=== PATIENT | male | born 1970 | race Caucasian/White ===

== ENCOUNTER 2019-02-07 21:35 | Emergency (ER) | payer MEDICAID ==
[2019-02-07] MEDS ORDERED: Ketorolac 60 MG/2 ML SDV IM ONE (21:58)
[2019-02-07 22:27] VITALS: BP 164/92
--- NOTE | 2019-02-08 02:16 | ER ---
DATE OF CONSULTATION: 02/07/2019 HISTORY OF PRESENT ILLNESS: This 48-year-old gentleman is seen in the emergency room this evening for evaluation of right groin pain. He has been having severe pain in the right groin region, described as a sharp stabbing pain. He is on the schedule to have his right inguinal hernia repaired in two days. He was having some diarrhea yesterday, but no nausea or vomiting. Because of the severity of the pain, he presents tonight for evaluation. PHYSICAL EXAMINATION: His upper abdomen is soft and nontender. His lower abdomen is normal to palpation and is soft, but he does have tenderness in the right inguinal region to palpation. In the upright position, I am able to palpate the hernia, but this easily reduces completely in the supine position. ASSESSMENT: Right inguinal hernia, reduced. PLAN: The patient does not have an incarcerated or strangulated hernia tonight. I will give him some Toradol IM for pain. We will have him rest at home tomorrow and not do any strenuous type activity. He will remain on the schedule to have his hernia repaired on Friday. /[id number] DIGNA/MARCO ANTONIO
== END 2019-02-07 22:10 | disposition home or self-care (01) ==
LOC: FB.ED 21:35
DX: K40.90 Unilateral inguinal hernia, without obstruction or gangrene, not specified as recurrent (principal)
CPT/HCPCS: 96372; 99282; J1885

== ENCOUNTER 2019-02-09 06:35 | Day surgery (SDC) | payer MEDICAID ==
[2019-02-09] MEDS ORDERED: Propofol 200 MG/20 ML SDV IV ONE (06:36)
[2019-02-09] MEDS ORDERED: Ketamine 500 mg/10 ML MDV IV ONE (06:36)
[2019-02-09] MEDS ORDERED: fentaNYL 100 MCG/2 ML SDV IV ONE ×2 (06:36)
[2019-02-09] MEDS ORDERED: Lactated Ringers 1,000 ML IV ONE (06:36)
[2019-02-09] MEDS ORDERED: Lidocaine 1% 30 ML SDV INJECT ONE (06:36)
[2019-02-09] MEDS ORDERED: Ketorolac 30 MG/ML SDV IVPUSH ONE (06:36)
[2019-02-09] MEDS ORDERED: Ondansetron 4 MG/2 ML SDV IVPUSH ONE (06:36)
[2019-02-09] MEDS ORDERED: Dexamethasone 4 MG/ML 5 ML MDV IVPUSH ONE (06:36)
[2019-02-09] MEDS ORDERED: Midazolam 1 MG/ML 2 ML SDV IV ONE (06:36)
[2019-02-09] MEDS ORDERED: Lactated Ringers 1,000 ML IV SCH (06:45)
[2019-02-09] MEDS ORDERED: Sodium Chloride 0.9% 10 ML Syringe FLUSH PRN (06:45)
[2019-02-09] MEDS ORDERED: Gabapentin 300 MG Cap PO ONE (07:00)
[2019-02-09] MEDS ORDERED: Acetaminophen 500 MG Tab PO ONE (07:00)
[2019-02-09] MEDS ORDERED: ceFAZolin 2 GM in Premix Bag 1 BAG IV ONE (08:00)
--- NOTE | 2019-02-09 08:09 | PCM.HPR ---
H & P Addendum review - H & P Addendum Review Date of Original H & P: 02/03/19 Date Reviewed: 02/09/19 Time Reviewed: 07:55 Patient was Examined: No Changes
[2019-02-09] MEDS ORDERED: Lidocaine 1% with EPINEPHrine 1:200,000 30 ML SDV ONE (08:36)
[2019-02-09] MEDS ORDERED: Bupivacaine 0.25% 30 ML SDV ONE (08:37)
[2019-02-09] MEDS ORDERED: ceFAZolin 1 GM Vial ONE (08:54)
--- NOTE | 2019-02-09 09:57 | PCM.OPNOTE ---
- General Post-Op/Procedure Note Date of Surgery/Procedure: 02/09/19 Operative Procedure(s): R IH repair with mesh Findings: R Indirect hernia Pre Op Diagnosis: R IH Post-Op Diagnosis: Same Anesthesia Technique: General LMA Primary Surgeon: Zaki SMITH in mLs: 5 Complications: None Condition: Good
[2019-02-09] MEDS ORDERED: Acetaminophen/HYDROcodone 325-5 MG Tab PO ONE (10:12)
--- NOTE | 2019-02-09 11:19 | OR ---
DATE OF OPERATION: 02/09/2019 SURGEON: Zaki Escamilla MD PREOPERATIVE DIAGNOSIS: Right inguinal hernia. POSTOPERATIVE DIAGNOSIS: Right indirect inguinal hernia. PROCEDURE: Right inguinal hernia repair with mesh. ANESTHESIA: General. PROCEDURE IN DETAIL: The patient was brought to the operating room after IV antibiotics had been started. Surgical site had been initialed by myself and the patient. Time-out was performed. General anesthesia was performed with laryngeal mask airway. The right groin area was clipped and prepped with ChloraPrep and draped sterilely. A 50:50 mixture of 1% lidocaine with epinephrine and 0.25% Marcaine was infiltrated in the skin and later on at the level of the fascia. A routine hernia incision was made above the inguinal ligament and extended through the subcutaneous tissue. External fascia was identified and opened in line with the external ring. The ilioinguinal nerve was identified and retracted inferiorly and protected from injury. Cord structures were dissected off the pubic tubercle and a Fawad drain was placed around these. A small cord lipoma was dissected off the structures and ligated at its base with 2-0 Vicryl. A medium size indirect hernia sac was also off the cord structures. This was twisted and suture-ligated at its base with 2-0 Vicryl and the excess sac transected. A routine hernia repair was then performed by using a large pre-cut keyhole polypropylene mesh. This was secured to the pubic tubercle with 0 Prolene. Several more interrupted sutures were used to secure this to Omero's ligament inferiorly and then a transition stitch made to the shelving edge of Poupart's ligament medial to the femoral vein. Edges of the mesh were brought around the nerve and cord and secured laterally such that the tip of the small finger would snugly fit into the opening. The edges of the mesh were tucked beneath the external fascia laterally. After the inferior edge of the mesh was finished being secured, several more interrupted sutures were used to secure it to the muscle superiorly, providing a tension-free repair. The wound was irrigated with Ancef and saline. External fascia was closed with running 2-0 Vicryl. The subcutaneous tissue was reapproximated with 3-0 Vicryl and skin closed with a running 4-0 Vicryl subcuticular suture. Benzoin and Steri-Strips were placed and a sterile dressing applied. The patient tolerated the procedure well. Testicles were in the scrotum following the procedure. Estimated blood loss 5 mL. He returned to postanesthesia in stable condition. /[id number] DIGNA/MARCO ANTONIO
[2019-02-09 12:37] VITALS: BP 133/69
== END 2019-02-09 11:50 | disposition home or self-care (01) ==
LOC: FB.SDS 06:35
PROVIDERS: ATTEND Surgery
DX: K40.90 Unilateral inguinal hernia, without obstruction or gangrene, not specified as recurrent (principal); D17.6 Benign lipomatous neoplasm of spermatic cord; E16.2 Hypoglycemia, unspecified; Z88.1 Allergy status to other antibiotic agents; Z91.048 Other nonmedicinal substance allergy status; Z79.899 Other long term (current) drug therapy
CPT/HCPCS: 49505; 82962; A9270; C1781; J0690; J1100; J1885; J2001; J2250; J2405; J2704; J3010; J3490; J7120